=== PATIENT | female | born 1990 | race African-American/Black ===

== ENCOUNTER 2024-08-18 12:45 | Emergency (ER) | payer OTHER ==
[~2024-08-18] VITALS: Ht 162.6 cm; Wt 64.5 kg
[2024-08-18 13:35] LABS: BASO # 0.1 10^3/uL (0.0-0.2); BASO % 0.5 % (0.0-1.0); EOS # 0.3 10^3/uL (0.0-0.5); EOS % 2.7 % (0.0-3.0); HEMATOCRIT 40.4 % (36.0-47.0); HEMOGLOBIN 13.1 g/dl (12.0-15.5); LYMPH # 3.7 10^3/uL (1.5-5.0); LYMPH % 39.2 % (24.0-44.0); MEAN CORPUSCULAR HEMOGLOBIN 27.9 pg (27.0-33.0); MEAN CORPUSCULAR HGB CONC 32.4 g/dl (32.0-36.5); MEAN CORPUSCULAR VOLUME 86.1 fl (80.0-96.0); MONO # 0.9 10^3/uL (0.0-0.8); MONO % 9.1 % (2.0-8.0); NEUTROPHILS # 4.6 10^3/uL (1.5-8.5); NEUTROPHILS % 48.4 % (36.0-66.0); PLATELET COUNT, AUTOMATED 393 10^3/uL (150-450); RED BLOOD COUNT 4.69 10^6/uL (4.00-5.40); WHITE BLOOD COUNT 9.4 10^3/uL (4.0-10.0)
[2024-08-18 13:41] LABS: KETONE, URINE AUTO RFX NEGATIVE (NEGATIVE); LEUKOCYTE ESTERASE UR AUTO RFX NEGATIVE (NEGATIVE); MUCUS, URINE RFX SMALL (NEGATIVE); NITRITE, URINE AUTO RFX NEGATIVE (NEGATIVE); RBC, URINE AUTO RFX 0 /HPF (0-3); SQUAM EPITHELIAL CELL UR AURFX 3 /HPF (0-6); WBC, URINE AUTO RFX 0 /HPF (0-3)
[2024-08-18 13:58] LABS: LIPASE 40 U/L (12-53)
[2024-08-18 14:00] LABS: ALBUMIN 4.1 G/DL (3.2-5.2); ALKALINE PHOSPHATASE 73 U/L (35-104); ALT/SGPT 22 U/L (7.0-40); AST/SGOT 20 U/L (<34); BILIRUBIN,DIRECT < 0.1 MG/DL (<0.4); BILIRUBIN,TOTAL 0.2 MG/DL (0.3-1.2); TOTAL PROTEIN 8.3 G/DL (5.7-8.2)
[2024-08-18] MEDS ORDERED: POLYETHYLENE GLYCOL (MIRALAX) 238GM BOTTLE PO ONE (14:40)
[2024-08-18] MEDS: MAGNESIUM CITRATE 300ML BTL PO ONE (14:59)
[2024-08-18] MEDS: SENNA 8.6 MG TAB (SENOKOT) PO ONE (14:59)
[2024-08-18 15:20] VITALS: BP 128/55; TEMP 98.1; O2SAT 100
== END 2024-08-18 15:30 | disposition home or self-care (01) ==
LOC: M ED 12:45
DX: K59.00 Constipation, unspecified (principal); Z88.8 Allergy status to other drugs, medicaments and biological substances

== ENCOUNTER 2025-04-12 20:15 | Emergency (ER) | payer OTHER ==
[~2025-04-12] VITALS: Ht 162.6 cm; Wt 65.6 kg
[2025-04-12 22:24] LABS: KETONE, URINE AUTO RFX NEGATIVE (NEGATIVE); LEUKOCYTE ESTERASE UR AUTO RFX NEGATIVE (NEGATIVE); MUCUS, URINE RFX SMALL (NEGATIVE); NITRITE, URINE AUTO RFX NEGATIVE (NEGATIVE); RBC, URINE AUTO RFX 1 /HPF (0-3); SQUAM EPITHELIAL CELL UR AURFX 5 /HPF (0-6); WBC, URINE AUTO RFX 1 /HPF (0-3)
[2025-04-13] MEDS: KETOROLAC 60 MG/2 ML VIAL IM ONE (01:00)
[2025-04-13 01:28] LABS: BASO # 0.0 10^3/uL (0.0-0.2); BASO % 0.5 % (0.0-1.0); EOS # 0.2 10^3/uL (0.0-0.5); EOS % 2.2 % (0.0-3.0); LYMPH # 4.0 10^3/uL (1.5-5.0); LYMPH % 48.8 % (24.0-44.0); MONO # 0.9 10^3/uL (0.0-0.8); MONO % 11.0 % (2.0-8.0); NEUTROPHILS # 3.0 10^3/uL (1.5-8.5); NEUTROPHILS % 37.4 % (36.0-66.0); PLATELET COUNT, AUTOMATED 342 10^3/uL (150-450)
[2025-04-13 01:56] LABS: CALCIUM LEVEL 8.9 MG/DL (8.5-10.1); CARBON DIOXIDE LEVEL 24 MMOL/L (20-31); CHLORIDE LEVEL 104 MMOL/L (98-107); CREATININE FOR GFR 0.65 MG/DL (0.55-1.30); GLOMERULAR FILTRATION RATE > 90.0 (>60); POTASSIUM SERUM 3.9 MMOL/L (3.5-5.1); SODIUM LEVEL 138 MMOL/L (136-145)
[2025-04-13 02:24] LABS: Trichomonas vaginalis (AMP) NOT DETECTED (NEGATIVE)
[2025-04-13 02:48] LABS: GC DNA AMPLIFICATION NEGATIVE (NEGATIVE)
[2025-04-13 03:33] LABS: HIV 1&2 SCREEN NEGATIVE (NEGATIVE)
[2025-04-13 04:19] VITALS: BP 121/68; TEMP 98.1; O2SAT 99
== END 2025-04-13 04:25 | disposition home or self-care (01) ==
LOC: M ED 20:15
DX: G89.18 Other acute postprocedural pain (principal); B97.7 Papillomavirus as the cause of diseases classified elsewhere; Z88.8 Allergy status to other drugs, medicaments and biological substances
CPT/HCPCS: 80048; 81001; 85025; 86780; 87389; 87486; 87581; 87633; 87661; 87798; 87810; 87850; 96372; 99283; J1885